=== PATIENT | male | born 1940 | race Caucasian/White ===

== ENCOUNTER → 2019-06-26 | Outpatient (CLI) | payer MEDICARE ==
--- NOTE | 2019-06-26 10:15 | Diagnostic Imaging Report ---
INDICATION: Left hip pain for 6 months. Time of exam: 9:52 AM Two views of the left hip were obtained. Femoral acetabular alignment is normal. Joint spaces are well maintained. Femoral head and neck are intact and no fractures are identified. IMPRESSION: No acute bony abnormality is detected. Dictated by: Dictated on workstation # [id number]
== END ==
LOC: RAD 09:34
PROVIDERS: ATTEND Family Medicine
DX: M25.552 Pain in left hip (principal)
CPT/HCPCS: 73502

== ENCOUNTER → 2021-02-26 | Outpatient (CLI) | payer MEDICARE, MEDICAID ==
--- NOTE | 2021-02-26 10:00 | Diagnostic Imaging Report ---
INDICATION: Dyspnea PA and lateral views of the chest are obtained. There is no previous study for comparison. Overall heart size and pulmonary vascularity are within normal limits. There does appear to be air trapping in the upper lobes. There is an approximately 1.5 cm nodular density projecting over the mid to lower thoracic spine seen on the lateral image only. This could represent sclerotic focus in the bone although pulmonary parenchymal lesion is not excluded. No other focal lesion is identified. IMPRESSION: No definite acute abnormality is identified, however, there is an approximately 1.5 cm hyperdense nodular focus projecting over the mid to lower thoracic spine posteriorly. Consideration could be given to thoracic CT for further characterization and localization. Dictated by: Dictated on workstation # [id number]
== END ==
LOC: RAD 09:16
PROVIDERS: ATTEND Family Medicine
DX: R06.02 Shortness of breath (principal); G95.89 Other specified diseases of spinal cord
CPT/HCPCS: 71046

== ENCOUNTER → 2021-02-28 | Outpatient (CLI) | payer MEDICARE, MEDICAID ==
[~2021-02-28] MED LIST: RT-ALBUTEROL SULF 2.5 MG/3 ML PRE-MIX VIAL INH ONE
== END ==
LOC: RT 14:56
PROVIDERS: ATTEND Family Medicine
DX: J44.9 Chronic obstructive pulmonary disease, unspecified (principal)
CPT/HCPCS: 94060; 94726; 94729

== ENCOUNTER → 2021-03-04 | Outpatient (CLI) | payer MEDICARE, MEDICAID ==
--- NOTE | 2021-03-04 17:04 | Diagnostic Imaging Report ---
PROCEDURE: CT thoracic spine without contrast. TECHNIQUE: Multiple axial computerized tomography images were obtained from the base of the thoracic spine to the vertex without intravenous contrast. Auto Exposure Controls were utilized during the CT exam to meet ALARA standards for radiation dose reduction. INDICATION: Back pain. Patient also had abnormal chest x-ray demonstrating a dense nodule. Correlation is made with chest radiograph from 02/26/2021. Curvature and alignment of the thoracic spine is normal. Vertebral body heights are maintained. No acute compression fracture is seen. There is generalized thoracic spondylosis with variable disc space narrowing and marginal spurring. There does appear to be a nodule in the left lung, lower lobe measuring 19 mm x 12 mm. This likely accounts for the chest radiographic density. No other pulmonary densities are identified. IMPRESSION: 1. Thoracic spondylosis. No acute bony abnormality is detected. 2. Left lower lobe pulmonary nodule. Dedicated CT chest with contrast is recommended for further characterization. Dictated by: Dictated on workstation # [id number]
== END ==
LOC: RAD 15:07
PROVIDERS: ATTEND Family Medicine
DX: M47.814 Spondylosis without myelopathy or radiculopathy, thoracic region (principal); R91.1 Solitary pulmonary nodule
CPT/HCPCS: 72128

== ENCOUNTER → 2021-03-05 | Outpatient (CLI) | payer MEDICARE, MEDICAID ==
[2021-03-05 10:05] LABS: CREATININE SERUM 1.78 MG/DL (0.60-1.30)
== END ==
LOC: LAB 09:30
PROVIDERS: ATTEND Family Medicine
DX: N28.9 Disorder of kidney and ureter, unspecified (principal)
CPT/HCPCS: 36415; 82565; 84520

== ENCOUNTER → 2021-03-07 | Outpatient (CLI) | payer MEDICARE, MEDICAID ==
--- NOTE | 2021-03-07 13:16 | Diagnostic Imaging Report ---
EXAMINATION: CT Chest without contrast. TECHNIQUE: Multiple contiguous axial images were obtained through the chest without the use of intravenous contrast. All CT scans use one or more of the following dose optimizing techniques: automated exposure control, MA and/or KvP adjustment based on a patient size and exam type, or iterative reconstruction. HISTORY: Pulmonary nodule followup. COMPARISON: T2 thoracic spine 03/04/2021 FINDINGS: Thyroid: The thyroid is normal. Mediastinum: Heart size is normal without significant pericardial effusion. Calcifications of the aorta and coronary vessels. Thoracic aorta is normal in caliber. No suspicious lymphadenopathy. Lungs and airways: There is diffuse subpleural reticulation and cystic change compatible with fibrosis or interstitial lung disease. There is scattered atelectasis or scarring within the lung bases. Within the left lower lobe abutting the pleura in a subpleural location there is a 2.2 x 1.1 cm area of masslike consolidation (series 3 image 104) which is similar in appearance to the prior CT on 03/04/2021. No pleural effusion or pneumothorax. The airways are normal. Upper abdomen: Cholelithiasis. There is asymmetric right renal atrophy without hydronephrosis. A right renal cyst is present and requires no followup. Musculoskeletal: Degenerative changes of the spine without suspicious osseous lesion or compression fracture. IMPRESSION: 1. A 2.2 x 1.1 cm subpleural pulmonary nodule, unchanged from 03/04/2021. Recommend followup CT chest in 3 months. Alternatively, evaluation with PET/CT or CT-guided biopsy could be performed. 2. Background findings of interstitial lung disease. Dictated by: Dictated on workstation # [id number]
== END ==
LOC: RAD 12:05
PROVIDERS: ATTEND Family Medicine
DX: R91.1 Solitary pulmonary nodule (principal); J84.9 Interstitial pulmonary disease, unspecified
CPT/HCPCS: 71250

== ENCOUNTER → 2021-03-28 | Outpatient (CLI) | payer MEDICARE, MEDICAID ==
[2021-03-28 09:55] LABS: CREATININE SERUM 1.62 MG/DL (0.60-1.30)
== END ==
LOC: CARD 10:30
PROVIDERS: ATTEND Internal Medicine Cardiovascular Disease
DX: I11.9 Hypertensive heart disease without heart failure (principal); I08.0 Rheumatic disorders of both mitral and aortic valves
CPT/HCPCS: 36415; 82565; 84520; 93306

== ENCOUNTER → 2021-05-07 | Outpatient (CLI) | payer MEDICARE, MEDICAID ==
[~2021-05-07] VITALS: Ht 182 cm; Wt 116.0 kg
[~2021-05-07] MED LIST changes: +REGADENOSON 0.4 MG/5 ML SYR (LEXISCAN) IV ONE; -RT-ALBUTEROL SULF 2.5 MG/3 ML PRE-MIX VIAL INH ONE
[2021-05-07] MEDS: CATHETER FLUSH 10 ML SYR IV PRN ×2 (07:25→09:32)
[2021-05-07 09:30] VITALS: BP 157/69
--- NOTE | 2021-05-07 13:22 | Cardiology Stress Test Report ---
Stress Test Report Date of Procedure/Referring: Date of Procedure: May 07, 2021 PCP Betsey Colunga MD Admitting Physician Suleman Cabello DO Indications: HTN Baseline Heart Rate: 80 Baseline Blood Pressure: Blood Pressure Systolic: 157 Blood Pressure Diastolic: 69 Baseline Vitals Vital Signs Date Time Temp Pulse Resp B/P (MAP) Pulse Ox O2 Delivery O2 Flow Rate FiO2 05/07/21 09:30 80 16 157/69 (98) 95 Room Air Baseline EKG: Baseline EKG: NSR Summary After explaining the procedure to the patient, he signed a consent and then brought to the stress nuclear laboratory. Patient received 0.4 mg Lexiscan for stress test, ECG, heart rate and blood pressure were monitored continuously. Resting and stress dose of radio tracer were injected, imaging was acquired and reviewed in short axis, horizontal long axis and vertical long axis views. TID: 1.13 SSS: 1 SDS: 1 EF: 50 1. Patient tolerated Lexiscan well 2. Patchy uptake with extracardiac attenuation, no significant ischemia or infarction on SPECT images 3. Normal left ventricular size, EF 50% BETSEY COLUNGA MD May 07, 2021 13:22
== END ==
LOC: CARD 08:00
PROVIDERS: ATTEND Internal Medicine Cardiovascular Disease
DX: I10 Essential (primary) hypertension (principal); I25.10 Atherosclerotic heart disease of native coronary artery without angina pectoris
CPT/HCPCS: 78452; 93017; A9502

== ENCOUNTER → 2021-05-27 | Outpatient (CLI) | payer MEDICARE, MEDICAID ==
[2021-05-27 11:26] LABS: CREATININE SERUM 1.74 MG/DL (0.60-1.30)
== END ==
LOC: LAB 10:35
PROVIDERS: ATTEND Family Medicine
DX: N28.9 Disorder of kidney and ureter, unspecified (principal)
CPT/HCPCS: 36415; 82565; 84520

== ENCOUNTER → 2021-05-30 | Outpatient (CLI) | payer MEDICARE, MEDICAID ==
--- NOTE | 2021-05-30 08:43 | Diagnostic Imaging Report ---
PROCEDURE: CT chest without contrast. TECHNIQUE: Multiple contiguous axial images were obtained through the chest without the use of intravenous contrast. Auto Exposure Controls were utilized during the CT exam to meet ALARA standards for radiation dose reduction. INDICATION: Pulmonary nodule COMPARISON: 03/07/2021 FINDINGS: No pathologically enlarged lymph nodes within the chest. Scattered vascular calcifications within the thoracic aorta and its branch vessels, including within the coronary arteries. No aneurysmal dilatation of thoracic aorta. The heart is within normal limits in size. No significant pericardial effusion. No pleural effusion. No significant hiatal hernia. The trachea is patent. No pneumothorax. 0.6 cm pulmonary nodule within the superior segment of the left lower lobe is stable, series 3, image 59. Pleural-based 2.1 x 1.0 cm pulmonary nodule within the posterior aspect of the left lower lobe is again identified and not significantly changed from the prior examination. No new suspicious pulmonary nodule or opacity. Background chronic interstitial lung changes are again identified. Cholelithiasis. Small indeterminate hypodensity within the left kidney is again noted and not significantly changed since the prior exam. Mild atrophy of the right kidney. Indeterminate hypodensity within the superior pole of the right kidney is again noted and similar to the prior exam. No acute osseous abnormality with scattered osseous degenerative changes present. IMPRESSION: Stable 2.1 x 1.0 cm solid left lower lobe pulmonary nodule. This remains indeterminate. Followup CT in 6 months is recommended. No new pulmonary nodule. Background chronic interstitial lung disease. Cholelithiasis. Mild right renal atrophy with indeterminate bilateral renal hypodensities. Renal ultrasound would help to further evaluate. Advanced background vascular calcifications. Dictated by: Dictated on workstation # [id number]
== END ==
LOC: RAD 08:45
PROVIDERS: ATTEND Family Medicine
DX: K80.20 Calculus of gallbladder without cholecystitis without obstruction (principal); N26.1 Atrophy of kidney (terminal); N28.89 Other specified disorders of kidney and ureter; R91.1 Solitary pulmonary nodule
CPT/HCPCS: 71250

== ENCOUNTER → 2021-06-04 | Outpatient (CLI) | payer MEDICARE, MEDICAID ==
--- NOTE | 2021-06-04 13:19 | Diagnostic Imaging Report ---
PROCEDURE: US Renal Bilateral. TECHNIQUE: Multiple real-time grayscale images were obtained over the kidneys in various projections bilaterally. INDICATION: Renal nodules partially visualized on earlier performed noncontrasted chest CT. FINDINGS: Right kidney is somewhat small with cortical thinning and measures 9.8 x 4.8 x 5.3 cm. An anechoic cyst off its upper pole measures 2.2 cm appears simple. An additional smaller upper pole cyst also appears anechoic and simple measuring 1.3 cm. The left kidney measures 13 x 5.5 x 6.4 cm within normal limits of size, cortical thickness and generalized parenchymal echotexture. There is a soft tissue vascularized bulbous distortion of its mid pole laterally and posteriorly which is likely however inconclusively reflective of an incidental dromedary hump. The possibility of a true soft tissue mass measuring 4 cm maximal could not be confidently excluded although is felt less likely. If this patient can tolerate iodinated contrast a formal renal protocol pre and postcontrast enhanced CT would be recommended. If iodinated contrast media cannot be tolerated the contrast-enhanced MRI abdomen would be recommended. Neither kidney shows opaque stone. There is no hydronephrosis. IMPRESSION: 1. A somewhat small right kidney with few simple benign cortical cysts. No hydronephrosis. 2. Left kidney shows likely a dromedary hump as an incidental finding at its mid pole posterolaterally, less likely consideration for mass cannot be confidently excluded and correlated contrast-enhanced CT versus MRI as nonemergent followup recommended. 3. Normal bladder. Dictated by: Dictated on workstation # [id number]
== END ==
LOC: RAD 10:36
PROVIDERS: ATTEND Family Medicine
DX: N28.1 Cyst of kidney, acquired (principal); N27.0 Small kidney, unilateral
CPT/HCPCS: 76770

== ENCOUNTER → 2021-11-26 | Outpatient (CLI) | payer MEDICARE, MEDICAID ==
--- NOTE | 2021-11-26 12:52 | Diagnostic Imaging Report ---
PROCEDURE: CT chest, abdomen, and pelvis without contrast. TECHNIQUE: Multiple contiguous axial images were obtained through the chest, abdomen, and pelvis without the use of intravenous contrast. Auto Exposure Controls were utilized during the CT exam to meet ALARA standards for radiation dose reduction. INDICATION: Nodule involving the left lung. CT CHEST: COMPARISON: 03/07/2021. FINDINGS: There is mild diffuse background emphysema with prominent subpleural interstitial markings suggesting fibrotic change. In addition, there is persistent subpleural nodule along the posterior aspect of the left lower lobe. This currently measures 2.5 x 1.1 cm. This does indicate mild increase in volume since previous study. There is questionable convergence of vessels and interstitial markings in this region, which can be seen with rounded atelectasis. There is no significant pleural or pericardial fluid. There are coronary artery calcifications. No pathologically enlarged adenopathy is seen. IMPRESSION: Mild interval increase in size of subpleural mass in the posterior left lower lobe. Given the apparent slow rate of growth, possibility of low-grade neoplasm is not excluded. Consideration should be given to PET imaging for further assessment and determination of need for biopsy. CT ABDOMEN AND PELVIS: FINDINGS: Unenhanced images of the liver and spleen reveal no focal lesion. Sludge and/or stones are present within the lumen of the gallbladder without evidence of biliary ductal dilatation. There is no evidence of pancreatic or adrenal gland lesion. There is relative volume loss in the right kidney with a probable dominant right upper pole renal cyst. There is no hydronephrosis. No free fluid is seen in the abdomen or pelvis, and there is no evidence of pathologically enlarged adenopathy. There is moderate aortoiliac atherosclerotic calcification. The appendix has a normal appearance. There is mild diffuse spondylosis. IMPRESSION: No CT evidence of acute abdominal or pelvic abnormality. There is no CT evidence of metastatic disease or pathologic adenopathy. Dictated by: Dictated on workstation # [id number]
== END ==
LOC: RAD 12:15
PROVIDERS: ATTEND Family Medicine
DX: R91.8 Other nonspecific abnormal finding of lung field (principal); N28.89 Other specified disorders of kidney and ureter
CPT/HCPCS: 71250; 74176

== ENCOUNTER → 2021-12-09 | Outpatient (CLI) | payer MEDICARE, MEDICAID ==
--- NOTE | 2021-12-09 15:06 | Diagnostic Imaging Report ---
INDICATION: Lung mass. TECHNIQUE: The serum blood glucose level at the time of injection was 107 mg/dL. The patient was administered 12.6 mCi of F-18 FDG intravenously in the right antecubital location and PET imaging was performed from the top of the skull to the mid thighs. A noncontrast CT was also performed for attenuation correction and anatomic correlation. COMPARISON: No prior PET study is available for comparison. Correlation is made with the recent CT from 11/26/2021. FINDINGS: There is symmetric activity throughout the brain. The soft tissues of the neck are unremarkable. No mediastinal or hilar hypermetabolism is seen. The subpleural opacity in the left lower lobe described on the recent CT does appear to be hypermetabolic with an SUV max of 9.2, suggestive of neoplasm. No other pulmonary parenchymal regions of hypermetabolism are identified. The GI and tracts show physiologic activity in the abdomen and pelvis. No suspicious region of hypermetabolism in the abdomen or pelvis is identified. IMPRESSION: A hypermetabolic subpleural mass in the left lower lobe is concerning for neoplasm. No definite mediastinal or hilar hypermetabolism is identified. Dictated by: Dictated on workstation # [id number]
== END ==
LOC: RAD 09:45
PROVIDERS: ATTEND Family Medicine
DX: R91.8 Other nonspecific abnormal finding of lung field (principal)
CPT/HCPCS: 78815; A9552

== ENCOUNTER 2021-12-22 07:14 | Day surgery (SDC) | payer MEDICARE, MEDICAID ==
--- NOTE | 2021-12-15 13:25 | HISTORY AND PHYSICAL ---
DATE OF SERVICE: CHIEF COMPLAINT: To have a lung biopsy surgery. MEDICATIONS: lisinopril 20 mg, metoprolol 100 mg one daily, Plavix 75 mg 1 daily. The patient told to stop the Plavix today until he has surgery on the . Amlodipine 10 mg and atorvastatin 40 mg 1 at bedtime. ALLERGIC TO MEDICATIONS: Denies. PAST SURGICAL HISTORY: Denies. FAMILY HISTORY: Really does not know his family. Denies asthma, TB, diabetes, heart disease, lung disease, cancer, but has no idea what is going on. REVIEW OF SYSTEMS: HEAD: Denies headache, dizziness, fainting. EYES, EARS, NOSE AND THROAT: Denies diplopia, tinnitus, sore throat. The patient is edentulous. No teeth. HEART: No history of heart problems or chest pain. LUNGS: Quit smoking 10 years ago, has a pulmonary nodule needs to be biopsied. Denies asthma, TB, coughing, congestion. Get short of breath at times when exerts too much. GASTROINTESTINAL: Appetite good. Denies blood in stools, diarrhea or constipation. GENITOURINARY: Denies blood, pain or frequency. PHYSICAL EXAMINATION: GENERAL: The patient is an elderly white male, in no acute respiratory distress at rest. EARS: No discharge. EYES: No conjunctivitis or icterus. THROAT: Noninflamed. The patient is edentulous. NECK: Thyroid not enlarged. No abnormal cervical lymphadenopathy noted. HEART: Regular rate and rhythm. LUNGS: Have some decreased auscultation. ABDOMEN: Soft. Liver and spleen nonpalpable. The patient is okay to have lung biopsy. The patient told to stop the Plavix today and told the possible side effects that taking the medicine. The patient had a previous history of a CVA, has hyperlipidemia and history of hypertension. Job ID: [id number] DocumentID: [id number] Dictated Date: 12/15/2021 13:02:47 Hazardous Materials Handler Date: 12/15/2021 13:25:05 Dictated By: ROBE KEARNEY DO
[2021-12-22] VITALS (13 sets, daily range): BP systolic 129–167; BP diastolic 55–84
[~2021-12-22] VITALS: Ht 182.9 cm; Wt 113.6 kg
[2021-12-22 07:54] LABS: BASOPHILS # (AUTO) 0.1 10^3/uL (0.0-0.1); BASOPHILS % (AUTO) 1 % (0-10); EOSINOPHILS # (AUTO) 0.3 10^3/uL (0.0-0.3); EOSINOPHILS % (AUTO) 3 % (0-10); HEMATOCRIT 35 % (40-54); HEMOGLOBIN 12.1 g/dL (13.3-17.7); LYMPHOCYTES # (AUTO) 2.9 10^3/uL (1.0-4.0); LYMPHOCYTES % (AUTO) 33 % (12-44); MEAN CORPUSCULAR HEMOGLOBIN 33 pg (25-34); MEAN CORPUSCULAR HGB CONC 34 g/dL (32-36); MEAN CORPUSCULAR VOLUME 97 fL (80-99); MONOCYTES # (AUTO) 1.1 10^3/uL (0.0-1.0); MONOCYTES % (AUTO) 13 % (0-12); NEUTROPHILS # (AUTO) 4.3 10^3/uL (1.8-7.8); NEUTROPHILS % (AUTO) 50 % (42-75); PLATELET COUNT 230 10^3/uL (130-400); WHITE BLOOD COUNT 8.6 10^3/uL (4.3-11.0)
[2021-12-22 08:15] LABS: PROTHROMBIN TIME PATIENT 13.7 SEC (12.2-14.7)
[2021-12-22] MEDS ORDERED: NS IV 1000 ML 1,000 ML IV SCH (08:15)
[2021-12-22] MEDS ORDERED: MIDAZOLAM 2 MG/2 ML (VERSED) VIAL INJ ONE (08:15)
[2021-12-22] MEDS ORDERED: LIDOCAINE 1% INJ 20 ML VIAL INJ ONE (08:15)
[2021-12-22] MEDS ORDERED: fentaNYL INJ 100 MCG/2 ML AMP INJ ONE (08:15)
[2021-12-22] MEDS ORDERED: AMLO-251 PO (08:20)
[2021-12-22] MEDS ORDERED: ATOR40TA70 PO (08:20)
[2021-12-22] MEDS ORDERED: LISI20TA26 PO (08:20)
[2021-12-22] MEDS ORDERED: CLOP75TA69 PO (08:20)
[2021-12-22] MEDS ORDERED: MTP100TCR PO (08:20)
[2021-12-22] MEDS ORDERED: LIDOCAINE 1% INJ 20 ML VIAL ONE (08:37)
[2021-12-22] MEDS ORDERED: MIDAZOLAM 2 MG/2 ML (VERSED) VIAL ONE (08:37)
[2021-12-22] MEDS ORDERED: fentaNYL INJ 100 MCG/2 ML AMP ONE (08:37)
[2021-12-22] MEDS ORDERED: NS IV 1000 ML 1,000 ML ONE (08:37)
[2021-12-22] MEDS ORDERED: HYDROcodone/APAP 5 MG/325 MG (LORTAB) TAB PO PRN (10:30)
--- NOTE | 2021-12-22 10:31 | Pre-Op Note & Conscious Sedat ---
Pre-Operative Progress Note H&P Reviewed The H&P was reviewed, patient examined and no changes noted. Date H&P Reviewed: Dec 22, 2021 Time H&P Reviewed: 08:00 Pre-Op Diagnosis: lung mass Conscious Sedation Pre-Proced Time 08:00 ASA Score 2 For ASA 3 and 4: Consider anesthesia and medical clearance. Also, for patients with a history of failed moderate sedation consider anesthesia. Airway Lungs Heart ASA score ASA 1: a normal healthy patient ASA 2: a patient with a mild systemic disease (mid diabetes, controlled hypertension, obesity ASA 3: a patient with a severe systemic disease that limits activity (angina, COPD, prior Myocardial infarction) ASA 4: a patient with an incapacitating disease that is a constant threat to life (CHF, renal failure) ASA 5: a moribund patient not expected to survive 24 hrs. (ruptured aneurysm) ASA 6: a declared brain- patient whose organs are being harvested. For emergent operations, add the letter E after the classification Mallampati Classification Grade 2 Sedation Plan Analgesia, Amnesia, Plan communicated to team members, Discussed options with patient/fam, Discussed risks with patient/fam The patient is an appropriate candidate to undergo the planned procedure, sedation, and anesthesia. The patient immediately re-assessed prior to indication. ELISSA PEREIRA MD Dec 22, 2021 10:30
--- NOTE | 2021-12-22 10:58 | Diagnostic Imaging Report ---
INDICATION: Hypermetabolic subpleural mass. TECHNIQUE: All CT scans use one or more of the following dose optimizing techniques: Automated exposure control, MA and/or KvP adjustment based on patient size and exam type or iterative reconstruction. Patient was brought to the CT suite and placed on the table in the [id number] decubitus position. Axial imaging through the chest was performed to evaluate appropriate entry site. The procedure was performed utilizing conscious sedation with radiology nursing and constant patient monitoring. Patient was given a total of 50 mcg of fentanyl intravenously and 1 mg of Versed intravenously. Total procedure time was approximately 11 minutes. Posterior thorax was prepped and draped in the usual sterile fashion. A small amount of 1% lidocaine was utilized for local anesthesia. An 18-gauge coaxial Temno needle was advanced from a posterior left paraspinal approach and placed with its tip in the subpleural mass in the left lower lobe. Four core biopsies were obtained. A blood patch was injected during needle removal. Follow-up imaging demonstrates a trace left basilar pneumothorax. The patient tolerated the procedure well and left the department in stable condition. IMPRESSION: Successful CT-guided left lower lobe lung mass biopsy, utilizing conscious sedation. Pathology results are currently pending. Dictated by: Dictated on workstation # [id number]
--- NOTE | 2021-12-22 12:20 | Diagnostic Imaging Report ---
INDICATION: Left lung mass, status post CT-guided left lung biopsy. TIME OF EXAM: 11:56 AM A left basilar density is noted. No pneumothorax is identified, status post left lung biopsy. There is some minimal right perihilar atelectasis. IMPRESSION: No evidence of pneumothorax, status post left lung biopsy. Dictated by: Dictated on workstation # [id number]
== END 2021-12-22 12:35 | disposition home or self-care (01) ==
LOC: RAD 07:14
PROVIDERS: ATTEND Family Medicine
DX: R91.8 Other nonspecific abnormal finding of lung field (principal); I10 Essential (primary) hypertension
CPT/HCPCS: 36415; 71045; 77012; 85025; 85610; 85730; 88305; 99156

== ENCOUNTER → 2022-10-22 | Outpatient (CLI) | payer MEDICARE, MEDICAID ==
[~2022-10-22] MED LIST changes: +AMLO-251 PO; +ATOR40TA70 PO; +CLOP-31 PO; +LISI20TA26 PO; +MTP100TCR PO; -REGADENOSON 0.4 MG/5 ML SYR (LEXISCAN) IV ONE
== END ==
LOC: CARD 10:30
PROVIDERS: ATTEND Family Medicine
DX: I49.9 Cardiac arrhythmia, unspecified (principal)
CPT/HCPCS: 93005

== ENCOUNTER 2023-02-17 06:49 | Day surgery (SDC) | payer MEDICARE, MEDICAID ==
[~2023-02-17] VITALS: Ht 180 cm; Wt 118.0 kg
[2023-02-17] VITALS (8 sets, daily range): BP systolic 113–151; BP diastolic 61–96
[2023-02-17] MEDS ORDERED: APIX2.5T PO (07:44)
[2023-02-17] MEDS ORDERED: OMEG100032 PO (07:44)
[2023-02-17] MEDS ORDERED: NS IV 1000 ML 1,000 ML IV SCH (07:45)
--- NOTE | 2023-02-17 08:02 | Diagnostic Imaging Report ---
INDICATION: afib sob htn hlp hx cva. TECHNIQUE: Single view chest 7:48 AM. CORRELATION STUDY: 12/22/2021 FINDINGS: Heart size enlarged. Vasculature is slightly increased. Mildly prominent interstitial markings both lung bases may reflect mild edema. No definitive infiltrate. IMPRESSION: 1. Borderline vascular congestion. Dictated by: Dictated on workstation # [id number]
[2023-02-17] MEDS ORDERED: NS IV 1000 ML 1,000 ML ONE (08:07)
[2023-02-17] MEDS ORDERED: LIDOCAINE 1% INJ 20 ML VIAL ONE (08:07)
[2023-02-17 08:11] LABS: BILIRUBIN,URINE NEGATIVE (NEGATIVE); CLARITY,URINE CLEAR; COLOR,URINE YELLOW; GLUCOSE, URINE (UA) NEGATIVE (NEGATIVE); KETONES,URINE NEGATIVE (NEGATIVE); LEUKOCYTE ESTERASE ,URINE NEGATIVE (NEGATIVE); NITRITE,URINE NEGATIVE (NEGATIVE); PH,URINE 6.5 (5-9); PROTEIN,URINE 2+ (NEGATIVE)
[2023-02-17 08:12] LABS: HEMATOCRIT 37 % (40-54); HEMOGLOBIN 12.6 g/dL (13.3-17.7); MEAN CORPUSCULAR HEMOGLOBIN 32 pg (25-34); MEAN CORPUSCULAR HGB CONC 34 g/dL (32-36); MEAN CORPUSCULAR VOLUME 95 fL (80-99); MEAN PLATELET VOLUME 10.8 fL (9.0-12.2); PLATELET COUNT 217 10^3/uL (130-400); WHITE BLOOD COUNT 8.3 10^3/uL (4.3-11.0)
--- NOTE | 2023-02-17 08:16 | Cardiac Procedure Note-CS/ASA ---
Pre-Procedure Note Pre-Op Procedure Note Date of Available H&P: Feb 09, 2023 Date H&P Reviewed: Feb 17, 2023 Time H&P Reviewed: 08:16 History & Physical: H&P Reviewed, Patient Examed, No changes noted Pre-Operative Diagnosis: PAF Moderate Sedation PreProcedure Time 08:16 ASA Score 3 Airway Lungs Heart ASA score ASA 1: a normal healthy patient ASA 2: a patient with a mild systemic disease (mid diabetes, controlled hypertension, obesity ASA 3: a patient with a severe systemic disease that limits activity (angina, COPD, prior Myocardial infarction) ASA 4: a patient with an incapacitating disease that is a constant threat to life (CHF, renal failure) ASA 5: a moribund patient not expected to survive 24 hrs. (ruptured aneurysm) ASA 6: a declared brain- patient whose organs are being harvested. For emergent operations, add the letter E after the classification Mallampati Classification Grade 3 Sedation Plan Analgesia, Amnesia, Plan communicated to team members, Discussed options with patient/fam, Discussed risks with patient/fam The patient is an appropriate candidate to undergo the planned procedure, sedation, and anesthesia. The patient immediately re-assessed prior to indication. BETSEY SUGGS MD Feb 17, 2023 08:16
[2023-02-17] MEDS ORDERED: LIDOCAINE 2% VISCOUS 15 ML UDC ONE (08:18)
[2023-02-17 08:19] LABS: BACTERIA,URINE NEGATIVE /HPF; RBC,URINE 0-2 /HPF; SQUAMOUS EPITHELIAL CELL,UR RARE /HPF; WBC,URINE RARE /HPF
[2023-02-17 08:24] LABS: INR 1.1 (0.8-1.4); PROTHROMBIN TIME PATIENT 14.6 SEC (12.2-14.7)
[2023-02-17] MEDS ORDERED: proPOfol 200 MG/20 ML (DIPRIVAN) VIAL IV ONE ×2 (08:39→09:08)
[2023-02-17] MEDS ORDERED: MIDAZOLAM 2 MG/2 ML (VERSED) VIAL ONE (08:39)
[2023-02-17 08:44] LABS: ALBUMIN 4.2 GM/DL (3.2-4.5); BILIRUBIN,TOTAL 0.8 MG/DL (0.1-1.0); CALCIUM 9.7 MG/DL (8.5-10.1); CREATININE SERUM 1.47 MG/DL (0.60-1.30); POTASSIUM 4.5 MMOL/L (3.6-5.0); TOTAL PROTEIN 7.3 GM/DL (6.4-8.2)
[2023-02-17] MEDS ORDERED: LIDOCAINE 2% VISCOUS 15 ML UDC PO ONE (09:00)
--- NOTE | 2023-02-17 09:17 | Anesthesia-General Post-Op ---
MAC Patient Condition Mental Status/LOC: Same as Preop Cardiovascular: Satisfactory Nausea/Vomiting: Absent Respiratory: Satisfactory Pain: Controlled Complications: Absent Post Op Complications Complications None Follow Up Care/Instructions Patient Instructions None needed. Anesthesiology Discharge Order Discharge Order Patient is doing well, no complaints, stable vital signs, no apparent adverse anesthesia problems. No complications reported per nursing. DORA AKINS CRNA Feb 17, 2023 09:17
[2023-02-17] MEDS ORDERED: APIX5TAB PO (09:19)
[2023-02-17] MEDS ORDERED: FLEC100T PO (09:19)
--- NOTE | 2023-02-17 09:19 | Discharge Inst-Post CATH ---
Discharge Inst-CATH/EP Problems Reviewed?: Yes Post Cardiac Cath/EP D/C Inst Follow Up/Plan Appointment with Dr. Colunga's office next week <b>CARDIAC CATH/EP PROCEDURE DISCHARGE INSTRUCTIONS</b> ACTIVITY * Go Home directly and rest. * Limit activity of the leg (or wrist if it was used) for 7 days including aerobics, swimming, jogging, bicycling, etc. * Restrict stair-climbing for 7 days if possible, if not, climb up with your non-cath leg, then bring together on the same step. * Avoid lifting, pushing, pulling or excessive movement of the affected extremity for 7 days. * Customary sexual activity may be resumed after 2 days-use caution not to use a position that strains or causes pain to the affected extremity. * No driving for 24 hours. * NO SMOKING. * Avoid straining for bowel movements for 7 days. * Gentle walking on level ground is allowed. * Returning to work will depend on the type of procedure and the results. Your doctor will discuss this with you. CALL YOUR DOCTOR FOR ANY OF THE FOLLOWING: *If bleeding from the puncture site occurs- Apply gentle pressure to site with clean cloth and call your doctor or EMS. * If a knot or lump forms under the skin, increases in size, or causes pain. * If bruising appears to be worsening or moving further down your leg instead of disappearing. * Temperature above 101 F. CARE OF YOUR GROIN INCISION; * Bruising or purple discoloration of the skin near the puncture site is common. * You may shower only, no bathtub bathing for 5 days. Be careful to avoid slipping as your leg may feel stiff. * If a closure device was used on your femoral artery, please see the attached guide regarding care of the device and your leg. * Leave dressing on FOR 24 hours. CARE OF YOUR WRIST INCISION; * Bruising or purple discoloration of the skin near the puncture site is common. * You may shower. * DO NOT submerge wrist. * Leave dressing on FOR 24 hours. BETSEY COLUNGA MD Feb 17, 2023 09:19
--- NOTE | 2023-02-17 09:20 | Cardioversion ---
Cardioversion PROCEDURE PHYSICIAN: Betsey Colunga DATE OF PROCEDURE: 02/17/23 DIRECT EXTERNAL ELECTRICAL CARDIOVERSION: Indications: Atrial Fibrillation with rapid ventricular rate Preoperative diagnoses: Atrial Fibrillation with rapid ventricular rate Postoperative diagnosis: Sinus rhythm, Successful Electrical Cardioversion History: 82-year-old gentleman with atrial fibrillation, unknown duration. Has been at least since October 2022 in atrial fibrillation on my evaluation. He was scheduled for JUAN and cardioversion then placement of a loop monitor. Anesthesia: By Anesthesia services Complications: None Specimen: None Contrast: 0 Flouroscopy: none Procedure Details: The patient was brought the aquatic life laborer after informed consent was taken, all the risks and complications were explained including the risk of stroke. Electrical cardioversion was carried out with anesthesia support with propofol. 200 joules of synchronized shock was delivered through external patches which promptly restored sinus rhythm. The patient tolerated the procedure well. Conclusions: Successful electrical cardioversion and terminating atrial fibrillation Discussion and plan Patient was instructed on increasing Eliquis to 5 mg twice daily and starting flecainide 50 mg twice daily His stress test was done in December 2020 with no significant ischemia or infarction with normal LV size by echo. Final Diagnosis: Paroxysmal atrial fibrillation Dyspnea Hypertension Hyperlipidemia BETSEY COLUNGA MD Feb 17, 2023 09:20
[2023-02-17] MEDS ORDERED: FLECAINIDE 100 MG (TAMBOCOR) TAB PO SCH (09:30)
[2023-02-17] MEDS ORDERED: APIXABAN 5 MG (ELIQUIS) TABLET PO SCH (09:30)
[2023-02-17] MEDS ORDERED: LIDOCAINE 1% INJ 20 ML VIAL INJ ONE (09:45)
[2023-02-17] MEDS ORDERED: NS IV 1000 ML 1,000 ML IV ONE (10:15)
--- NOTE | 2023-02-17 10:18 | Implantation of Loop Monitor ---
Implant of Loop Monitior IMPLANTATION OF LOOP MONITOR REPORT DATE OF PROCEDURE: 02/17/23 PREOP DIAGNOSIS: Paroxysmal atrial fibrillation POSTOP DIAGNOSIS: Paroxysmal atrial fibrillation PROCEDURE DETAILS: The patient is a 82 male with history of paroxysmal atrial fibrillation requiring long-term surveillance. Underwent JUAN with electrical cardioversion on 02/17/2023. Started on flecainide and has been on Eliquis therefore implantable loop recorder was discussed and agreed with the patient. Informed consent was taken. All risks and complications were discussed at length. The patient was draped and prepped in the usual sterile fashion. Local anesthesia was lidocaine, which was given in the substernal area close to the 4th intercostal space. Loop monitor [employer] with serial number [id number] was implanted according to the protocol. Steri-Strips were placed at the end of the procedure. There were no complications and the patient tolerated the procedure well. The device was interrogated with a voltage of. ANESTHESIA: Local anesthesia with lidocaine. COMPLICATIONS: None CONTRAST/FLUOROSCOPY: None CONCLUSION: Successful implantation of loop monitor with no complication FINAL DIAGNOSIS: Paroxysmal atrial fibrillation Palpitation Hypertension Hyperlipidemia BETSEY SUGGS MD Feb 17, 2023 10:18
[2023-02-18] MEDS ORDERED: meTOprolol SUCCINATE 100 MG (TOPROL XL) TAB PO SCH (09:00)
[2023-02-18] MEDS ORDERED: lisINopril 20 MG (PRINIVIL) TABLET PO SCH (09:00)
[2023-02-18] MEDS ORDERED: amLODIPine 10 MG (NORVASC) TAB PO SCH (09:00)
[2023-02-18] MEDS ORDERED: CLOPIDOGREL 75 MG (PLAVIX) TABLET PO SCH (09:00)
== END 2023-02-17 10:58 | disposition home or self-care (01) ==
LOC: CATH 06:49
PROVIDERS: ATTEND Internal Medicine Cardiovascular Disease
DX: I48.0 Paroxysmal atrial fibrillation (principal); R00.2 Palpitations; I10 Essential (primary) hypertension; E78.2 Mixed hyperlipidemia; I48.19 Other persistent atrial fibrillation; I08.0 Rheumatic disorders of both mitral and aortic valves; I65.23 Occlusion and stenosis of bilateral carotid arteries; I69.354 Hemiplegia and hemiparesis following cerebral infarction affecting left non-dominant side; N28.9 Disorder of kidney and ureter, unspecified; R06.09 Other forms of dyspnea; I25.10 Atherosclerotic heart disease of native coronary artery without angina pectoris; R07.2 Precordial pain; Z87.891 Personal history of nicotine dependence; Z79.899 Other long term (current) drug therapy; Z79.01 Long term (current) use of anticoagulants; Z79.02 Long term (current) use of antithrombotics/antiplatelets
CPT/HCPCS: 33285; 71045; 80053; 80061; 81000; 85027; 85610; 85730; 87081; 92960; 93005; C1764; 36415

== ENCOUNTER → 2023-03-10 13:25 | Day surgery (SDC) | payer MEDICARE, MEDICAID ==
[~2023-03-10] VITALS: Ht 180.3 cm; Wt 118.3 kg
--- NOTE | 2023-03-10 12:27 | Cardiac Procedure Note-CS/ASA ---
Pre-Procedure Note Pre-Op Procedure Note Date of Available H&P: Mar 09, 2023 Date H&P Reviewed: Mar 10, 2023 Time H&P Reviewed: 12:26 History & Physical: H&P Reviewed, Patient Examed, No changes noted Pre-Operative Diagnosis: PAF Moderate Sedation PreProcedure Time 12:27 ASA Score 3 Airway Lungs Heart ASA score ASA 1: a normal healthy patient ASA 2: a patient with a mild systemic disease (mid diabetes, controlled hypertension, obesity ASA 3: a patient with a severe systemic disease that limits activity (angina, COPD, prior Myocardial infarction) ASA 4: a patient with an incapacitating disease that is a constant threat to life (CHF, renal failure) ASA 5: a moribund patient not expected to survive 24 hrs. (ruptured aneurysm) ASA 6: a declared brain- patient whose organs are being harvested. For emergent operations, add the letter E after the classification Mallampati Classification Grade 3 Sedation Plan Analgesia, Amnesia, Plan communicated to team members, Discussed options with patient/fam, Discussed risks with patient/fam The patient is an appropriate candidate to undergo the planned procedure, sedation, and anesthesia. The patient immediately re-assessed prior to indication. BETSEY SUGGS MD Mar 10, 2023 12:27
[2023-03-10 12:28] VITALS: BP 167/83
[2023-03-10 12:30] VITALS: BP 127/64
--- NOTE | 2023-03-10 12:31 | Cardioversion ---
Cardioversion PROCEDURE PHYSICIAN: Betsey Colunga DATE OF PROCEDURE: 03/10/23 DIRECT EXTERNAL ELECTRICAL CARDIOVERSION: Indications: Atrial Fibrillation with rapid ventricular rate Preoperative diagnoses: Atrial Fibrillation with rapid ventricular rate Postoperative diagnosis: Sinus rhythm, Successful Electrical Cardioversion History: 82 years old gentleman with paroxysmal atrial fibrillation, had multiple cardioversion in the past, has been on flecainide 100 mg twice daily, went back to atrial fibrillation, scheduled for cardioversion then planning to increase flecainide dose Anesthesia: By Anesthesia services Complications: None Specimen: None Contrast: 0 Flouroscopy: none Procedure Details: The patient was brought the laborer cook house after informed consent was taken, all the risks and complications were explained including the risk of stroke. Electrical cardioversion was carried out with anesthesia support with propofol. 200 joules of synchronized shock was delivered through external patches which promptly restored sinus rhythm. The patient tolerated the procedure well. Conclusions: Successful electrical cardioversion terminating atrial fibrillation Final Diagnosis: Paroxysmal atrial fibrillation Palpitation Hypertension BETSEY COLUGNA MD Mar 10, 2023 12:31
--- NOTE | 2023-03-10 12:32 | Discharge Inst-Post CATH ---
Discharge Inst-CATH/EP Problems Reviewed?: Yes Post Cardiac Cath/EP D/C Inst Follow Up/Plan Appointment with Dr. Colunga's office in 1 to 2 weeks <b>CARDIAC CATH/EP PROCEDURE DISCHARGE INSTRUCTIONS</b> ACTIVITY * Go Home directly and rest. * Limit activity of the leg (or wrist if it was used) for 7 days including aer obics, swimming, jogging, bicycling, etc. * Restrict stair-climbing for 7 days if possible, if not, climb up with your non-cath leg, then bring together on the same step. * Avoid lifting, pushing, pulling or excessive movement of the affected extremi ty for 7 days. * Customary sexual activity may be resumed after 2 days-use caution not to use a position that strains or causes pain to the affected extremity. * No driving for 24 hours. * NO SMOKING. * Avoid straining for bowel movements for 7 days. * Gentle walking on level ground is allowed. * Returning to work will depend on the type of procedure and the results. Your doctor will discuss this with you. CALL YOUR DOCTOR FOR ANY OF THE FOLLOWING: *If bleeding from the puncture site occurs- Apply gentle pressure to site with clean cloth and call your doctor or EMS. * If a knot or lump forms under the skin, increases in size, or causes pain. * If bruising appears to be worsening or moving further down your leg instead of disappearing. * Temperature above 101 F. CARE OF YOUR GROIN INCISION; * Bruising or purple discoloration of the skin near the puncture site is common. * You may shower only, no bathtub bathing for 5 days. Be careful to avoid slipping as your leg may feel stiff. * If a closure device was used on your femoral artery, please see the attached guide regarding care of the device and your leg. * Leave dressing on FOR 24 hours. CARE OF YOUR WRIST INCISION; * Bruising or purple discoloration of the skin near the puncture site is common. * You may shower. * DO NOT submerge wrist. * Leave dressing on FOR 24 hours. BETSEY COLUNGA MD Mar 10, 2023 12:32
[2023-03-10 12:35] VITALS: BP 120/65
--- NOTE | 2023-03-10 12:39 | Anesthesia-General Post-Op ---
MAC Patient Condition Mental Status/LOC: Same as Preop Cardiovascular: Satisfactory Nausea/Vomiting: Absent Respiratory: Satisfactory Pain: Controlled Complications: Absent Post Op Complications Complications None Follow Up Care/Instructions Patient Instructions None needed. Anesthesiology Discharge Order Discharge Order Patient is doing well, no complaints, stable vital signs, no apparent adverse anesthesia problems. No complications reported per nursing. RAIN BERRY CRNA Mar 10, 2023 12:39
[2023-03-10 12:51] VITALS: BP 137/61
[2023-03-10 13:00] VITALS: BP 127/59
[2023-03-10 13:15] VITALS: BP 130/60
[~2023-03-10 13:25] MED LIST changes: +ACET325T38 PO; +AMLO-250 PO; +APIX2.5T PO; +APIX5TAB PO; +CLOP75TA28 PO; +FLEC100T PO; +METO50TA7 PO; +NS IV 1000 ML 1,000 ML IV SCH; +NS IV 1000 ML 1,000 ML ONE; +OMEG100032 PO; +proPOfol 200 MG/20 ML (DIPRIVAN) VIAL IV ONE
== END | disposition home or self-care (01) ==
LOC: CATH 13:25
PROVIDERS: ATTEND Internal Medicine Cardiovascular Disease
DX: I48.0 Paroxysmal atrial fibrillation (principal); I10 Essential (primary) hypertension; I63.9 Cerebral infarction, unspecified; E78.2 Mixed hyperlipidemia; I65.23 Occlusion and stenosis of bilateral carotid arteries; N28.9 Disorder of kidney and ureter, unspecified; I49.3 Ventricular premature depolarization; Z79.01 Long term (current) use of anticoagulants; Z79.899 Other long term (current) drug therapy; Z87.891 Personal history of nicotine dependence
CPT/HCPCS: 92960; 93005

== ENCOUNTER → 2023-03-31 | Outpatient (CLI) | payer MEDICARE, MEDICAID ==
[~2023-03-31] MED LIST changes: +CATHETER FLUSH 10 ML SYR IVP PRN; -NS IV 1000 ML 1,000 ML IV SCH; -NS IV 1000 ML 1,000 ML ONE; +REGADENOSON 0.4 MG/5 ML SYR (LEXISCAN) IV ONE; -proPOfol 200 MG/20 ML (DIPRIVAN) VIAL IV ONE
[2023-03-31 09:16] VITALS: BP 185/65
--- NOTE | 2023-03-31 15:59 | Cardiology Stress Test Report ---
Stress Test Report Date of Procedure/Referring: Date of Procedure: March 31, 2023 PCP Suleman Cabello DO Admitting Physician Admitting Physician: Attending Physician: Jenny Cox Indications: PAF Baseline Heart Rate: 57 Baseline Blood Pressure: Blood Pressure Systolic: 185 Blood Pressure Diastolic: 65 Baseline Vitals Vital Signs Date Time Temp Pulse Resp B/P (MAP) Pulse Ox O2 Delivery O2 Flow Rate FiO2 03/31/23 09:16 58 185/65 (105) Baseline EKG: Baseline EKG: NSR Summary After explaining the procedure to the patient, he signed a consent and then brought to the stress nuclear laboratory. Patient received 0.4 mg Lexiscan for stress test, ECG, heart rate and blood pressure were monitored continuously. Resting and stress dose of radio tracer were injected, imaging was acquired and reviewed in short axis, horizontal long axis and vertical long axis views. TID: 1.01 SSS: 4 SDS: 4 EF: 52 Patient tolerated Lexiscan well Diaphragmatic attenuation with typical male pattern with no significant ischemia or infarction on SPECT images Normal left ventricular size, ejection fraction 52% Copy Copies To 1: SULEMAN CABELLO BASHAR J MD March 31, 2023 15:59
== END ==
LOC: CARD 08:00
PROVIDERS: ATTEND Physician Assistant
DX: I48.0 Paroxysmal atrial fibrillation (principal); J98.6 Disorders of diaphragm
CPT/HCPCS: 78452; 93017; A9502